=== PATIENT | female | born 1995 ===

== ENCOUNTER 2017-11-25 18:26 | Emergency (ER) | payer MEDICAID, OTHER ==
[2017-11-25 18:27] VITALS: BMI 22.6
[2017-11-25 18:56] VITALS: TEMP 98.5; O2SAT 100
[2017-11-25] MEDS ORDERED: Lactated Ringer's 1,000 ML IV SCH (20:00)
--- NOTE | 2017-11-25 20:19 | OBHP ---
Datetime: 11/25/2017 20:17 IP Adm Impression: , intrauterine IP Chief Complaint Other: nausea/vomyting Admit Comment, IP Provider: at 26.2weks came with c/o vomiting x 3 at work when she inhaked gas , no ctxs, vb, lof+fm. obhx primi pmh de med pnv all nkda psh de soch de ve closed a/p at 26+weeks vomting ua npo/ivf cont kwmae cont close obser Pelvic Type - PN: Adequate Extremities - PN: Normal Abdomen - PN: Normal Back - PN: Normal Breast - PN: Normal Lungs - PN: Normal Heart - PN: Normal Thyroid - PN: Normal Neurologic - PN: Normal HEENT - PN: Normal General - PN: Normal FHR - Baseline A Provider: 130 Contraction Comments Provider: none Vital Signs Provider: Reviewed; Within Normal Limits NICHD Variability Prov Fetus A: Moderate 6-25bpm NICHD Decel Fetus A IP Provider: None Dilatation, Provider: 0 Effacement, Provider: 0 Station, Provider: -3 Genitourinary Exam: Normal DTRs - PN: Normal
[2017-11-25 20:44] LABS: SQUAMOUS EPITHIAL < 1 /hpf (0-5); URINE BACTERIA OCC (<OCC); URINE BILIRUBIN NEGATIVE (NEGATIVE); URINE BLOOD NEGATIVE (NEGATIVE); URINE CLARITY Clear (Clear); URINE COLOR Straw (YELLOW); URINE GLUCOSE (UA) NORMAL (Normal); URINE LEUKOCYTE ESTERASE NEG Leu/uL (Negative); URINE NITRATE NEGATIVE (NEGATIVE); URINE PROTEIN NEGATIVE (NEGATIVE); URINE UROBILINOGEN NORMAL mg/dL (0.2-1.0)
[2017-11-26 01:20] VITALS: BP 104/52; PULSE 83; RESP 18
== END 2017-11-25 21:00 | disposition home or self-care (01) ==
LOC: C.EROB 18:26
DX: O21.9 Vomiting of pregnancy, unspecified (principal); Z3A.26 26 weeks gestation of pregnancy
CPT/HCPCS: 81001; 99281; J7120